=== PATIENT | male | born 1970 | race African-American/Black ===

== ENCOUNTER 2017-01-15 06:47 | Day surgery (SDC) | payer OTHER ==
[2017-01-12 12:57] LABS: HEMATOCRIT 44.3 % (37.9-51.0); HEMOGLOBIN 14.7 g/dL (13.5-17.0); HGB HCT DIFFERENCE -0.2; MEAN CORPUSCULAR HEMOGLOBIN 26.5 pg (27.0-33.4); MEAN CORPUSCULAR HGB CONC 33.1 g/dL (32.0-36.0); MEAN CORPUSCULAR VOLUME 80 fl (80-97); RED BLOOD COUNT 5.55 10^6/uL (4.35-5.55); RED CELL DISTRIBUTION WIDTH 13.8 % (11.5-14.0); WHITE BLOOD COUNT 5.7 10^3/uL (4.0-10.5)
--- NOTE | 2017-01-12 19:05 | EKG REPORT ---
SEVERITY:- ABNORMAL ECG - SINUS RHYTHM NONSPECIFIC T ABNORMALITIES, INFERIOR LEADS : Confirmed by: Lisa Obrien 12-Jan-2017 19:03:39
[~2017-01-15 06:47] MED LIST: CEFAZOLIN 2 GM/D5W RTU 2 GM/50 ML RTUPB IV PRN; LACTATED RINGERS 1000 ML IV PRN; LIDOCAINE 0.5% INJ-PF (5 MG/ML) 50 ML SDV SUBCUT PRN; MORPHINE SULFATE 10 MG/ML INJ IV PRN; ONDANSETRON HCL INJ/PF 4 MG/2 ML SDV IV PRN
[2017-01-15] MEDS ORDERED: LIDOCAINE 2% URO-JET 5 ML KIT ONE (07:28)
[2017-01-15] MEDS ORDERED: BUPIVACAINE HCL 0.25 % INJ/PF (2.5 MG/1 ML) 30 ML VIAL ONE (07:28)
[2017-01-15] MEDS ORDERED: PROPOFOL INJ 200 MG/20 ML VIAL IV ONE ×2 (09:17→09:42)
[2017-01-15] MEDS ORDERED: ONDANSETRON HCL INJ/PF 4 MG/2 ML SDV ONE (09:17)
[2017-01-15] MEDS ORDERED: FENTANYL CITRATE INJ/PF 100 MCG/2 ML AMPUL ONE (09:17)
[2017-01-15] MEDS ORDERED: MIDAZOLAM 2 MG/2 ML INJ ONE (09:17)
[2017-01-15] MEDS ORDERED: DEXAMETHASONE SOD PHOSPHATE INJ 4 MG/1 ML VIAL ONE (09:17)
[2017-01-15] MEDS ORDERED: MORPHINE SULFATE 10 MG/ML INJ ONE (09:18)
[2017-01-15] MEDS ORDERED: PROMETHAZINE HCL INJ 25 MG/1 ML VIAL IV PRN ×2 (09:58)
[2017-01-15] MEDS ORDERED: MORPHINE SULFATE 10 MG/ML INJ IV PRN ×2 (09:58→11:32)
[2017-01-15] MEDS ORDERED: DIPHENHYDRAMINE HCL 50 MG/ML VIAL IV PRN (09:58)
[2017-01-15] MEDS ORDERED: FENTANYL CITRATE INJ/PF 100 MCG/2 ML AMPUL IV PRN ×3 (09:58)
[2017-01-15] MEDS ORDERED: MEPERIDINE HCL/PF INJ 25 MG/1 ML DISP.SYRIN IV PRN (09:58)
--- NOTE | 2017-01-15 10:51 | Brief Operative Note ---
BRIEF OPERATIVE REPORT DATE OF SURGERY: 01/15/17 TIME OF SURGERY: 09:45 PREOPERATIVE DIAGNOSIS: left spermatocele, gross hematuria POSTOPERATIVE DIAGNOSIS: left spermatocele, wide caliber, short-segment 22Fr proximal bulbar urethral stricture SURGEON: JOHN UP FINDINGS: see dictation COMPLICATIONS: none ESTIMATED BLOOD LOSS: 2 TISSUE REMOVED OR ALTERED: 1) Left spermatocele. 2) Left appendix epididymis. 3) Instrumented bladder urine through cystoscope for cytology TECHNICAL PROCEDURE: 1)Left spermatocelectomy. 2)Left hydrocelectomy. 3) Excision of left paratesticular lesion. 4)Diagnostic cystoscopy
[2017-01-15] MEDS ORDERED: OXYCODONE-ACETAMINOPHEN 5-325 MG TABLET PO PRN ×2 (11:31)
--- NOTE | 2017-01-15 11:44 | OPERATIVE REPORT E ---
Operative Report NAME: SUNIL RAMIREZ : 1970 AGE: 46Y DATE OF SURGERY: 01/15/2017 ROOM: PREOPERATIVE DIAGNOSES: 1. LEFT SPERMATOCELE. 2. GROSS HEMATURIA. POSTOPERATIVE DIAGNOSES: 1. LEFT SPERMATOCELE. 2. LEFT HYDROCELE. 3. SHORT ANNULAR BULBAR URETHRAL STRICTURE OF 22-YORUBA. OPERATION: 1. Left spermatocelectomy. 2. Left hydrocelectomy. 3. Removal of left testicular appendage (appendix epididymis). 4. Diagnostic cystoscopy. SURGEON: Gelacio Reddy M.D. ANESTHESIA: General LMA. ESTIMATED BLOOD LOSS: 2. INTRAVENOUS FLUIDS: 900 mL Ringer's lactate. DRAINS,TUBES, LINES: None. TISSUE REMOVED OR ALTERED: 1. Left spermatocele. 2. Left appendix epididymis. 3. Instrumented urine through cystoscope for cytology. COMPLICATIONS: None. CONDITION: Stable. INDICATIONS FOR PROCEDURE: The patient is a 46-year-old gentleman who presents with left-sided orchalgia and a large left epididymal tail cyst, also with some intermittent gross hematuria. He presents for above procedure. PROCEDURE: The patient was identified in the preoperative holding area. The surgery with all the attendant risks and benefits were again described in detail to the patient and he confirms his consent to proceed. He was marked on the left side and had Ancef 2 g provided. He was then brought back to the operating room where sequential compression devices were placed. These were cycled prior to induction of general LMA anesthesia. The patient then had genitalia shaved and was prepped and draped in the usual sterile fashion. A surgical time-out was performed and all were in agreement. We then started the case. We began by marking the midline raphe. We made an incision along the midline raphe approximately 2.5 cm. Through this, we made our incision with a 15 blade scalpel and brought first the epididymal cyst and then the testis through the incision. We saw a small reactive hydrocele. We cleared the cremasterics off of the hydrocele sac and then we opened the hydrocele sac midline and suctioned the fluid out. We everted the hydrocele sac posterior and cauterized the edges. This allowed us to visualize the testis and spermatocele. The testis was atrophic in size, but appeared healthy. The spermatocele was in fact larger than the testis and it was on the epididymal tail. Then with a combination of bipolar and microscissors, we carefully dissected the spermatocele off of the epididymal tail. We bipolared down circumferentially around it and finally removed the spermatocele whole and intact. We passed it off the table labeled "left spermatocele." We then used bipolar to cauterize around where the spermatocele was excised and then we removed the appendix epididymis with the Bovie and passed this off labeled "left appendix epididymis." We then everted the hydrocele sac posterior and secured it in a Jaboulay plication with 4-0 Monocryl and were satisfied that we had good hemostasis throughout. We irrigated the scrotum and then placed the testis back in appropriate location in the scrotum in the dependent portion of the scrotum. There was no torsion of the cord. We used 10 mL of 0.25% Marcaine plain as a cord block. We then closed the dartos layer and cremasteric layer together with running 3-0 Vicryl. We then used approximately 7 mL of 0.25% Marcaine plain in the subcutaneous tissue and then we closed the skin with running 4-0 Monocryl in a horizontal mattress stitch. We then brought the flexible cystoscope onto the table and performed diagnostic cystoscopy. The fossa navicularis and the penile urethra were without any abnormality. There was a short segment annular ring in the proximal bulbourethra. This was approximately 22-Maltese in size and we were able to easily pass the scope beyond it. The prostate was not obstructing the bladder, showed no lesions concerning for malignancy and showed only mild trabeculation. Both ureteral orifices were in their normal anatomical location. No lesions of concern for malignancy were seen. We then removed the scope and placed a 14-Maltese catheter to decompress the bladder. We then cleaned the patient and applied Dermabond to the scrotal incision and then placed fluffs and scrotal support on. He was awakened from anesthesia and transferred to the PACU in stable condition. PLAN: Discharge per PACU protocol. Will follow up as an outpatient after recovery. He will have 2 weeks of convalescence followed by 2 weeks of light duty. DICTATING PHYSICIAN: Gelacio Reddy MD [id number] PHY#: [id number] ID: [id number] JOB#: [id number] ACCT: [id number] cc:Gelacio Reddy M.D. >
[2017-01-15] MEDS ORDERED: DEXAMETHASONE SOD PHOS INJ 10 MG/1 ML VIAL IV ONE (15:30)
[2017-01-15 17:55] VITALS: BP 123/75
== END 2017-01-15 16:10 | disposition home or self-care (01) ==
LOC: OROUT 06:47
PROVIDERS: ATTEND Urology
PROC: 0VBG0ZZ Excision of Left Spermatic Cord, Open Approach (ICD-10-PCS; 2017-01-15)
PROC: 0TJB8ZZ Inspection of Bladder, Via Natural or Artificial Opening Endoscopic (ICD-10-PCS; principal; 2017-01-15 09:00)
PROC: 0VBK0ZZ Excision of Left Epididymis, Open Approach (ICD-10-PCS; 2017-01-15 09:00)
DX: N43.41 Spermatocele of epididymis, single (principal); N43.3 Hydrocele, unspecified; N35.9 Urethral stricture, unspecified; I10 Essential (primary) hypertension; R01.1 Cardiac murmur, unspecified; E78.5 Hyperlipidemia, unspecified; Z79.82 Long term (current) use of aspirin; Z79.899 Other long term (current) drug therapy
CPT/HCPCS: 93005; 36415 ×2; 84132; 85027; 88162; 88304 ×2; 93010; 52000; 54840; 55500; J2250; J1100 ×2; J3010; J2270; J2405; J2704; J0690; 920; J3490

== ENCOUNTER 2017-01-29 20:02 | Emergency (ER) | payer OTHER ==
[2017-01-29 21:53] LABS: ABSOLUTE BASOPHILS # (AUTO) 0.1 10^3/uL (0.0-0.2); ABSOLUTE LYMPHOCYTES (AUTO) 1.6 10^3/uL (0.5-4.7); ABSOLUTE NEUT (AUTO) 13.1 10^3/uL (1.7-8.2); BASOPHILS % (AUTO) 0.5 % (0-2); EOSINOPHILS % (AUTO) 0.2 % (0-6); HEMATOCRIT 40.1 % (37.9-51.0); HEMOGLOBIN 13.2 g/dL (13.5-17.0); HGB HCT DIFFERENCE -0.5; LYMPHOCYTES % (AUTO) 10.2 % (13-45); MEAN CORPUSCULAR HEMOGLOBIN 26.3 pg (27.0-33.4); MEAN CORPUSCULAR VOLUME 80 fl (80-97); MONOCYTES % (AUTO) 6.1 % (3-13); RED BLOOD COUNT 5.04 10^6/uL (4.35-5.55); RED CELL DISTRIBUTION WIDTH 13.9 % (11.5-14.0); WHITE BLOOD COUNT 15.8 10^3/uL (4.0-10.5)
[2017-01-29] MEDS ORDERED: NORMAL SALINE 1000 ML 1,000 ML IV ONE (21:59)
[2017-01-29] MEDS ORDERED: PROMETHAZINE HCL 25 MG TABLET PO ONE (21:59)
--- NOTE | 2017-01-29 22:05 | ER Document Report ---
ED General - General Chief Complaint: Headache Stated Complaint: CHILLS,BODY ACHES,NAUSEA,FEVER Mode of Arrival: Ambulatory Information source: Patient Notes: This is a 46-year-old -[place] male who is postop day 14 status post L spermatocelectomy and L hydrocelectomy with cystoscopy done by Dr Reddy here at [facility]. He states that initially he had an uncomplicated postoperative course but that yesterday he began feeling poorly with his fevers and chills. He states his temperature at home last night was 101. He also states he is having left inguinal pain. No dysuria. He has had nausea but no vomiting. No cough or congestion. He states that he has increased urinary frequency and feels that he has to urinate every hour. He has not yet had a postop follow-up appointment with Dr. Rodriguez. TRAVEL OUTSIDE OF THE [place] IN LAST 30 DAYS: No - Related Data Allergies/Adverse Reactions: carrots, apples, almonds, pears Allergy (Uncoded 01/15/17 07:50) Anaphylaxis Past Medical History - General Information source: Patient - Social History Smoking Status: Never Smoker Chew tobacco use (# tins/day): No Frequency of alcohol use: Rare Drug Abuse: None Family History: Reviewed & Not Pertinent Patient has suicidal ideation: No Patient has homicidal ideation: No - Past Medical History Cardiac Medical History: Reports: Hx Hypercholesterolemia, Hx Hypertension Denies: Hx Coronary Artery Disease, Hx Heart Attack Pulmonary Medical History: Denies: Hx Asthma, Hx Bronchitis, Hx COPD, Hx Pneumonia Neurological Medical History: Reports: Hx Migraine. Denies: Hx Cerebrovascular Accident, Hx Seizures Renal/ Medical History: Denies: Hx Peritoneal Dialysis Musculoskeltal Medical History: Denies Hx Arthritis Past Surgical History: Reports: Hx Urinary Tract Surgery - lt testicular surgery 01/15/17 - Immunizations Hx Diphtheria, Pertussis, Tetanus Vaccination: Yes Review of Systems - Review of Systems Constitutional: See HPI, Chills, Fever EENT: No symptoms reported Cardiovascular: No symptoms reported. denies: Chest pain Respiratory: No symptoms reported. denies: Cough, Hurts to breathe Gastrointestinal: See HPI Genitourinary: See HPI Musculoskeletal: No symptoms reported Skin: No symptoms reported Hematologic/Lymphatic: No symptoms reported Neurological/Psychological: No symptoms reported Physical Exam - Vital signs Vitals: Temp Pulse Resp BP Pulse Ox 98.7 F 90 18 123/78 98 01/29/17 20:05 01/29/17 20:05 01/29/17 20:05 01/29/17 20:05 01/29/17 20:05 - Notes Notes: PHYSICAL EXAMINATION: GENERAL: Well-appearing, well-nourished and in no acute distress but appears to not feel well. HEAD: Atraumatic, normocephalic. EYES: Pupils equal round and reactive to light, extraocular movements intact, sclera anicteric, conjunctiva are normal. ENT: nares patent, oropharynx clear without exudates. Moist mucous membranes. NECK: Normal range of motion, supple without lymphadenopathy LUNGS: Breath sounds clear to auscultation bilaterally and equal. No wheezes rales or rhonchi. HEART: Regular rate and rhythm without murmurs ABDOMEN: Soft, mild LLQ TTP, normoactive bowel sounds. No guarding, no rebound. No masses appreciated. : no testicular swelling, erythema, discoloration. No testicular TTP. Normal lie. No inguinal hernia palpated. No external lesions EXTREMITIES: Normal range of motion, no pitting or edema. NEUROLOGICAL: Cranial nerves grossly intact. Normal speech. No gross focal motor or sensory deficit appreciated PSYCH: Normal mood, normal affect. SKIN: Warm, Dry, normal turgor, no rashes or lesions noted. Course - Re-evaluation Re-evalutation: 01/30/17 02:12 Patient states that he is feeling better. No vomiting in the ER. Labs demonstrate leukocytosis but otherwise reassuring. No UTI. CT with no acute process. Given fever and urinary symptoms and being post-op 2 weeks, will treat with course of levaquin and encourage patient to call his urologist tomorrow. Return precautions discussed. He and are comfortable with the plan, and all questions are answered. - Vital Signs Vital signs: Temp Pulse Resp BP Pulse Ox 99.1 F 66 18 119/71 98 01/29/17 21:00 01/30/17 02:34 01/30/17 02:34 01/30/17 02:34 01/29/17 20:05 - Laboratory Result Diagrams: 01/29/17 21:35 01/29/17 21:35 Laboratory results interpreted by me: 01/29/17 21:35 WBC 15.8 H Hgb 13.2 L MCH 26.3 L Seg Neutrophils % 83.0 H Lymphocytes % 10.2 L Absolute Neutrophils 13.1 H Discharge - Discharge Clinical Impression: Febrile illness, Urinary frequency Condition: Stable Disposition: HOME, SELF-CARE Additional Instructions: As discussed, call your urologist later today to arrange follow up. Take levaquin as prescribed and increase fluid intake. REturn to the ER for persistant high fevers (>101), severe abdominal/scrotal pain, persistent vomiting, or any other worsening symptoms or concerns. Prescriptions: Levofloxacin [Levaquin 750 mg Tablet] 750 mg PO DAILY #5 tablet Promethazine HCl [Phenergan 25 mg Tablet] 25 mg PO Q8H PRN #12 tablet PRN Reason: Referrals: KATHY LOPES MD [Primary Care Provider] - Follow up in 3-5 days
[2017-01-29 22:14] LABS: ALANINE AMINOTRANSFERASE 33 U/L (21-72); ALBUMIN 4.1 g/dL (3.5-5.0); ALKALINE PHOSPHATASE 74 U/L (38-126); ANION GAP 15 (5-19); ASPARTATE AMINO TRANSFERASE 25 U/L (17-59); BILIRUBIN,DIRECT 0.4 mg/dL (0.0-0.4); BLOOD UREA NITROGEN 15 mg/dL (7-20); CALCIUM 9.8 mg/dL (8.4-10.2); CARBON DIOXIDE 28 mmol/L (22-30); CHLORIDE 100 mmol/L (98-107); CREATININE RESULT 1.13 mg/dL (0.52-1.25); GLUCOSE 105 mg/dL (75-110); POTASSIUM 4.2 mmol/L (3.6-5.0); SODIUM 142.5 mmol/L (137-145); TOTAL PROTEIN 7.4 g/dL (6.3-8.2)
[2017-01-29] MEDS ORDERED: LEVOFLOXACIN 750 MG/D5W RTU 150 ML IV ONE (22:30)
[2017-01-29 23:25] LABS: APPEARANCE,URINE CLEAR; BILIRUBIN,URINE NEGATIVE (NEGATIVE); GLUCOSE, URINE NEGATIVE (NEGATIVE); KETONES,URINE NEGATIVE (NEGATIVE); LEUKOCYTE ESTERASE,URINE NEGATIVE (NEGATIVE); NITRITE,URINE NEGATIVE (NEGATIVE); PROTEIN,URINE NEGATIVE (NEGATIVE); URINE SPECIFIC GRAVITY 1.014; UROBILINOGEN,URINE NEGATIVE mg/dL (<2.0)
[2017-01-30 02:35] VITALS: BP 119/71
== END 2017-01-30 02:34 | disposition home or self-care (01) ==
LOC: ER 20:02
DX: R50.9 Fever, unspecified (principal); R35.0 Frequency of micturition; R51 Headache; M79.1 Myalgia; R11.0 Nausea; E78.00 Pure hypercholesterolemia, unspecified; I10 Essential (primary) hypertension; Z98.890 Other specified postprocedural states
CPT/HCPCS: 99284; 96365; 36415; 87040; 85025; 80053; 81001; 74177; J7030; J1956